=== PATIENT | male | born 2000 | race Caucasian/White ===

== ENCOUNTER 2022-09-05 20:16 | Emergency (ER) | payer OTHER ==
--- NOTE | 2022-09-05 21:13 | NUR ---
CALLED FOR TRIAGE. NO ANSWER
--- NOTE | 2022-09-05 21:36 | NUR ---
CALLED FOR TRIAGE. NO ANSWER
--- NOTE | 2022-09-05 21:52 | NUR ---
CALLED FOR TRIAGE. NO ANSWER
== END 2022-09-05 21:53 | disposition left against medical advice (07) ==
LOC: ER 20:18
DX: Z53.21 Procedure and treatment not carried out due to patient leaving prior to being seen by health care provider (principal)